=== PATIENT | female | born 1980 | race Caucasian/White ===

== ENCOUNTER 2025-08-18 13:22 | Emergency (ER) | payer OTHER ==
[2025-08-18] MEDS ORDERED: Lidocaine 1% PF 5 ML VIAL ONE (14:20)
[2025-08-18] MEDS ORDERED: Boostrix 0.5 ML (Tdap) VIAL (>/=7 yrs of age) ONE (14:21)
[2025-08-18] MEDS ORDERED: Cephalexin 500 MG CAP ONE (15:18)
[2025-08-18] MEDS ORDERED: Bacitracin 1 PK ONE (15:19)
== END 2025-08-18 15:27 | disposition home or self-care (01) ==
LOC: MADERS 13:22
DX: S60.352A Superficial foreign body of left thumb, initial encounter (principal); Z23 Encounter for immunization; Z77.111 Contact with and (suspected) exposure to water pollution; W45.3XXA Fishing hook entering through skin, initial encounter
CPT/HCPCS: 64450; 90471; 90715